=== PATIENT | female | born 1945 | race American Indian/Alaskan Native ===

== ENCOUNTER 2016-12-03 06:28 | Day surgery (SDC) | payer MEDICARE ==
[~2016-12-03 06:28] MED LIST: TETRACAINE 0.5% OS PRN
[2016-12-03] MEDS: MYDRIACYL OS SCH ×3 (07:00→07:10)
[2016-12-03] MEDS: VIGAMOX OS SCH ×3 (07:00→07:10)
[2016-12-03] MEDS: AK-Dilate OS SCH ×3 (07:00→07:10)
--- NOTE | 2016-12-03 07:22 | Anesthesia Consultation ---
Anesthesia Consult and Med Hx Date of service: 12/03/16 - Airway Anesthetic Teeth Evaluation: Good ROM Head & Neck: Adequate Mental/Hyoid Distance: Adequate Mallampati Class: Class II Intubation Access Assessment: Probably Good - Pulmonary Exam CTA: Yes - Cardiac Exam Cardiac Exam: RRR - Pre-Operative Health Status ASA Pre-Surgery Classification: ASA3 Proposed Anesthetic Plan: MAC - Pulmonary Hx Smoking: Yes - Cardiovascular System Hx Hypertension: Yes - Central Nervous System Hx Psychiatric Problems: No - Hematic Hx Anemia: Yes - Other Systems Hx Alcohol Use: Yes (DAILY) Hx Cancer: No
--- NOTE | 2016-12-03 07:22 | Anesthesia Day of Surgery ---
Anesthesia Day of Surgery - Day of Surgery Patient Examined: Yes Patient H&P Reviewed: Yes Patient is NPO: Yes
[2016-12-03] MEDS ORDERED: SUBLIMAZE ONE (07:39)
[2016-12-03] MEDS ORDERED: VERSED ONE (07:46)
--- NOTE | 2016-12-03 08:23 | Post Anesthesia Evaluation ---
- Post Anesthesia Evaluation Patient Participated: Yes Airway Patent: Yes Stable Respiratory Function: Yes Nausea/Vomiting: No Temp > 96.8F: Yes Pain Manageable: Yes Adequeate Hydration: Yes Anesthesia Complications: No Block Receding Appropriately: Not Applicable Patient on Ventilator: No
--- NOTE | 2016-12-03 08:48 | Operative Report ---
Operative Report Operative Report: PATIENT'S NAME: DATE OF : DATE OF SURGERY: 11/02/2016 PREOPERATIVE DIAGNOSIS: Cataract left eye POSTOPERATIVE DIAGNOSIS: Same OPERATIVE PROCEDURE: Phacoemulsification with intraocular lens implantation, left eye SURGEON: Cecelia Cosme M.D. HELP DESK ASSISTANT SURGEON: Abby Lens: [id number] 22.0 D ANESTHESIA: Monitored anesthesia care in combination with topical and intracameral anesthesia because of the established specific risk of reflux, arrhythmias, or anxiety attacks associated with ocular manipulation, as well as the difficulty of the tufter hand to manage such potentially catastrophic events while simultaneously attempting to complete the surgical procedure and was deemed necessary for the patient's safety to have an Sales Representative Business Courses present during the procedure whenever possible. An Sales Representative Business Courses was utilized to regulate the intravenous sedation of the patient so the patient was cooperative yet not asleep in order for the patient to successfully maintain fixation of the eye on the operating light of the microscope. COMPLICATIONS: No surgical complications No blood loss. ALLERGIES: Full grapefruit [place] PROGNOSIS: Excellent INDICATIONS FOR SURGERY: The patient is undergoing surgery in the hopes of eliminating or improving these visual difficulties. PROCEDURE: After arriving at the surgery center, the patient was given topical anesthetic and dilating drops, as noted in the record. The patient was then taken into the operating room and given more anesthetic drops. The eyelids , lashes, and lid margins were scrubbed with Betadine solution, and the patient was draped. The Nurse Sales Representative Business Courses administered IV sedation and monitored the patient during the procedure. The eye was then fixated with a 0.12, and a stab incision was made in the peripheral clear cornea into the anterior chamber. This was made on my left side. Viscoelastic was next used to fill the anterior chamber. The eye was once again fixated with the 0.12 forceps and a keratome was used make an incision in clear cornea peripherally on my right hand side temporally. The capsule forceps were used to open the central anterior capsule and then make a continuous round capsulotomy. Hydrodissection was carried out utilizing a cannula and balanced salt solution to delineate the cortical material from the capsule and the nucleus from the cortical material. The phaco tip was introduced into the eye and used to remove the anterior cortical material in the area of the capsulotomy. Then the phaco tip was buried into the nucleus, and a chopping instrument was introduced into the eye and used to provide countertraction in the nucleus between this instrument and the phaco tip fracturing the nucleus. This procedure was repeated multiple times, providing multiple small segments of the lens, and then the phaco tip was used to remove each of these segments. An I/A tip was then used to remove the remaining cortex. The anterior chamber was refilled with viscoelastic. An one-piece, acrylic intraocular lens was then placed into an inserting cartridge. The tip of the inserting cartridge was introduced into the keratome incision and into the anterior chamber. The implant was gently advanced through the cartridge and into the eye, where it unfolded, and both haptics were placed in the capsular bag, where it centered nicely and appeared to be well fixated. After placement of the intraocular lens, the I~and~A handpiece was placed back into the eye and used to remove the viscoelastic, including viscoelastic that was behind the optic of the intraocular lens. The anterior chamber was then filled with balanced salt solution, and hydration of the wound was used to cause swelling of the wound and more appropriate watertight closure. When the wound was found to be firm, the patient was asked to comment on how bright the light was. If there was no light perception at all or if the light was substantially dimmer than during the rest of the surgery, the amount of fluid in the eye was decompressed to lower the intraocular pressure until the patient could see the bright light again. This was done to avoid any damage or decreased blood flow to the optic nerve. MEDICATIONS APPLIED AT END OF SURGERY: One drop of Pred Forte and Vigamox The patient was given a shield to wear at night and was instructed not to rub or push on the eye. DISCHARGE SUMMARY: The patient was released in stable condition. The patient and those with the patient were given a written sheet of postoperative instructions and counseling on any abnormal laboratory studies. The patient is to see us tomorrow for follow-up in the office and is to call immediately for any difficulties. Cecelia Cosme M.D. Date
--- NOTE | 2016-12-03 08:49 | Short Stay Summary ---
Short Stay Documentation Date of service: 12/03/16 - History H&P: obtained from office - Allergies and Medications Current Medications: Allergies apple Allergy (Verified 11/18/16 14:35) itch, hives grapefruit Allergy (Verified 11/18/16 14:35) itch, hives orange Allergy (Verified 11/18/16 14:35) itch, hives Home Medications Medication Instructions Recorded Confirmed Last Taken Type No Known Home Medications [No 11/18/16 12/02/16 Unknown History Reported Home Medications] Active Medications Moxifloxacin HCl (Vigamox) 1 drops OS Q5MIN [facility] Stop: 12/05/16 06:01 Last Admin: 12/03/16 07:10 Dose: 1 drops Phenylephrine HCl (Ak-Dilate) 1 drops OS Q5MIN [facility] Stop: 12/05/16 06:01 Last Admin: 12/03/16 07:10 Dose: 1 drops Prednisolone Acetate (Pred Forte 1%) 1 drops OU QID [facility] Tetracaine HCl (Tetracaine 0.5%) 1 drops OS Q5M PRN PRN Reason: Analgesia Last Admin: 12/03/16 07:00 Dose: 1 drops Tropicamide (Mydriacyl) 1 drops OS Q5MIN [facility] Stop: 12/05/16 06:01 Last Admin: 12/03/16 07:10 Dose: 1 drops - Brief post op/procedure progress note Date of procedure: 12/03/16 Pre-op diagnosis: left cataract Post-op diagnosis: same Procedure: Phacoemulsification intraocular lens insertion Anesthesia: MAC Surgeon: JOHN BLEDSOE Estimated blood loss: none Pathology: none Condition: stable - Disposition Condition at discharge: Good Disposition: DC-01 TO HOME OR SELFCARE - Discharge Diagnoses (1) Cataract Status: Resolved Qualifiers: Cataract type: age-related Age-related cataract type: nuclear Infantile/ juvenile cataract type: I Traumatic cataract type: T Complicated cataract type: C Secondary cataract type: S Laterality: left Qualified Code(s): H25.12 - Age-related nuclear cataract, left eye Short Stay Discharge Plan Follow up with: EDE SANDOVAL MD [Primary Care Provider] - 7 Days
[2016-12-03] MEDS ORDERED: PRED FORTE 1% OU SCH (10:00)
[2016-12-03 15:14] VITALS: BP 169/89
== END 2016-12-03 09:20 | disposition home or self-care (01) ==
LOC: OR 06:28
DX: H26.9 Unspecified cataract (principal); I10 Essential (primary) hypertension; M19.90 Unspecified osteoarthritis, unspecified site; D64.9 Anemia, unspecified; F17.200 Nicotine dependence, unspecified, uncomplicated; Z91.018 Allergy to other foods; Z72.89 Other problems related to lifestyle
CPT/HCPCS: 66984; J2250; J3010; V2632

== ENCOUNTER 2017-01-02 12:32 | Emergency (ER) | payer MEDICARE | END 2017-01-02 12:40 | disposition left against medical advice (07) | LOC: ED 12:32 | DX: H57.10 Ocular pain, unspecified eye (principal); Z91.018 Allergy to other foods; Z53.21 Procedure and treatment not carried out due to patient leaving prior to being seen by health care provider ==

== ENCOUNTER 2017-01-21 06:46 | Day surgery (SDC) | payer MEDICARE ==
[~2017-01-21 06:46] MED LIST changes: +TETRACAINE 0.5% OD PRN; -TETRACAINE 0.5% OS PRN
--- NOTE | 2017-01-21 08:57 | Anesthesia Day of Surgery ---
Anesthesia Day of Surgery - Day of Surgery Patient Examined: Yes Patient H&P Reviewed: Yes Patient is NPO: Yes
--- NOTE | 2017-01-21 08:57 | Anesthesia Consultation ---
Anesthesia Consult and Med Hx Date of service: 01/21/17 - Airway Anesthetic Teeth Evaluation: Good ROM Head & Neck: Adequate Mental/Hyoid Distance: Adequate Mallampati Class: Class II Intubation Access Assessment: Probably Good - Pulmonary Exam CTA: Yes - Cardiac Exam Cardiac Exam: RRR - Pre-Operative Health Status ASA Pre-Surgery Classification: ASA2 Proposed Anesthetic Plan: MAC - Pulmonary Hx Smoking: Yes - Cardiovascular System Hx Hypertension: Yes - Central Nervous System Hx Psychiatric Problems: No - Hematic Hx Anemia: Yes - Other Systems Hx Alcohol Use: Yes (DAILY/VODKA) Hx Substance Use: No Hx Cancer: No
[2017-01-21] MEDS: VIGAMOX OD SCH ×3 (09:34→09:48)
[2017-01-21] MEDS: MYDRIACYL OD SCH ×3 (09:34→09:47)
[2017-01-21] MEDS: AK-Dilate OD SCH ×3 (09:34→09:47)
[2017-01-21] MEDS ORDERED: SUBLIMAZE ONE (09:54)
[2017-01-21] MEDS ORDERED: VERSED ONE (09:54)
[2017-01-21] MEDS ORDERED: PRED FORTE 1% OU SCH (10:30)
[2017-01-21] MEDS ORDERED: XYLOCAINE 1% MPF 5 mL IJ ONE (10:31)
[2017-01-21] MEDS ORDERED: PRED FORTE 1% OD ONE (11:00)
--- NOTE | 2017-01-21 11:18 | Operative Report ---
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 STACK YIELD ENGINEER SURGEON: Abby Lens: [id number] 22.5 D ANESTHESIA: Monitored anesthesia care in combination with topical and intracameral anesthesia because of the established specific risk of reflux, arrhythmias, or anxiety attacks associated with ocular manipulation, as well as the difficulty of the aquatic physiotherapist to manage such potentially catastrophic events while simultaneously attempting to complete the surgical procedure and was deemed necessary for the patient's safety to have an Security Site Supervisor present during the procedure whenever possible. An Security Site Supervisor was utilized to regulate the intravenous sedation of the patient so the patient was cooperative yet not asleep in order for the patient to successfully maintain fixation of the eye on the operating light of the microscope. COMPLICATIONS: No blood loss. ALLERGIES: Fruit skin PROGNOSIS: Excellent INDICATIONS FOR SURGERY: The patient is undergoing surgery in the hopes of eliminating or improving these visual difficulties. PROCEDURE: After arriving at the surgery center, the patient was given topical anesthetic and dilating drops, as noted in the record. The patient was then taken into the operating room and given more anesthetic drops. The eyelids , lashes, and lid margins were scrubbed with Betadine solution, and the patient was draped. The Nurse Security Site Supervisor administered IV sedation and monitored the patient during the procedure. The eye was then fixated with a 0.12, and a stab incision was made in the peripheral clear cornea into the anterior chamber. This was made on my left side. Viscoelastic was next used to fill the anterior chamber. The eye was once again fixated with the 0.12 forceps and a keratome was used make an incision in clear cornea peripherally on my right hand side temporally. The capsule forceps were used to open the central anterior capsule and then make a continuous round capsulotomy. Hydrodissection was carried out utilizing a cannula and balanced salt solution to delineate the cortical material from the capsule and the nucleus from the cortical material. The phaco tip was introduced into the eye and used to remove the anterior cortical material in the area of the capsulotomy. Then the phaco tip was buried into the nucleus, and a chopping instrument was introduced into the eye and used to provide countertraction in the nucleus between this instrument and the phaco tip fracturing the nucleus. This procedure was repeated multiple times, providing multiple small segments of the lens, and then the phaco tip was used to remove each of these segments. Due to a small pupil size, it was deemed necessary to dilate the pupil mechanically so that the surgery could be more safely and effectively carried out. A Beehler corneal dilator was brought into the operative field and it was inserted into the keratome incision. The hook on the distal end of the dilator was used to hook the pupil in the meridian of the keratome incision and to pull the iris/pupil, which was hooked, back to the site of the keratome incisions entry into the anterior chamber. The Malugyan ring was inserted to allow better visualization. The pupil kept on moving outside of wound incision. An I/A tip was then used to remove the remaining cortex. The anterior chamber was refilled with viscoelastic. An one-piece, acrylic intraocular lens was then placed into an inserting cartridge. The tip of the inserting cartridge was introduced into the keratome incision and into the anterior chamber. The implant was gently advanced through the cartridge and into the eye, where it unfolded, and both haptics were placed in the capsular bag, where it centered nicely and appeared to be well fixated. After placement of the intraocular lens, the Malugyan ring was removed then the I~and~A handpiece was placed back into the eye and used to remove the viscoelastic, including viscoelastic that was behind the optic of the intraocular lens. The anterior chamber was then filled with balanced salt solution, and hydration of the wound was used to cause swelling of the wound and more appropriate watertight closure. When the wound was found to be firm, the patient was asked to comment on how bright the light was. If there was no light perception at all or if the light was substantially dimmer than during the rest of the surgery, the amount of fluid in the eye was decompressed to lower the intraocular pressure until the patient could see the bright light again. This was done to avoid any damage or decreased blood flow to the optic nerve. MEDICATIONS APPLIED AT END OF SURGERY: One drop of Pred Forte and Vigamox The patient was given a shield to wear at night and was instructed not to rub or push on the eye. DISCHARGE SUMMARY: The patient was released in stable condition. The patient and those with the patient were given a written sheet of postoperative instructions and counseling on any abnormal laboratory studies. The patient is to see us tomorrow for follow-up in the office and is to call immediately for any difficulties. Cecelia Cosme M.D. Date
--- NOTE | 2017-01-21 11:20 | Short Stay Summary ---
Short Stay Documentation Date of service: 01/21/17 - History H&P: obtained from office - Allergies and Medications Current Medications: Allergies apple Allergy (Verified 11/18/16 14:35) itch, hives grapefruit Allergy (Verified 11/18/16 14:35) itch, hives orange Allergy (Verified 11/18/16 14:35) itch, hives Home Medications Medication Instructions Recorded Confirmed Last Taken Type prednisoLONE ACETATE 1% [Pred 1 drops OD QID 01/20/17 01/21/17 01/20/17 History Forte 1%] Active Medications Moxifloxacin HCl (Vigamox) 1 drops OD Q5MIN [facility] Stop: 01/23/17 06:01 Last Admin: 01/21/17 09:48 Dose: 1 drops Phenylephrine HCl (Ak-Dilate) 1 drops OD Q5MIN [facility] Stop: 01/23/17 06:01 Last Admin: 01/21/17 09:47 Dose: 1 drops Tetracaine HCl (Tetracaine 0.5%) 1 drops OD Q5M PRN PRN Reason: Analgesia Last Admin: 01/21/17 09:32 Dose: 1 drops Tropicamide (Mydriacyl) 1 drops OD Q5MIN [facility] Stop: 01/23/17 06:01 Last Admin: 01/21/17 09:47 Dose: 1 drops - Brief post op/procedure progress note Date of procedure: 01/21/17 Pre-op diagnosis: right cataract and floppy iris syndrome Post-op diagnosis: same Procedure: Phacoemulsification with intraocular lens insertion right eye Anesthesia: MAC Surgeon: JOHN BLEDSOE Estimated blood loss: none Pathology: none Condition: stable - Disposition Condition at discharge: Good Disposition: DC-01 TO HOME OR SELFCARE - Discharge Diagnoses (1) Cataract Status: Resolved Qualifiers: Cataract type: age-related Age-related cataract type: nuclear Infantile/ juvenile cataract type: I Traumatic cataract type: T Complicated cataract type: C Secondary cataract type: S Laterality: right Qualified Code(s): H25.11 - Age-related nuclear cataract, right eye Short Stay Discharge Plan Follow up with: EDE SANDOVAL MD [Primary Care Provider] - 7 Days
[2017-01-21 11:35] VITALS: BP 162/96
== END 2017-01-21 11:28 | disposition home or self-care (01) ==
LOC: OR 06:46
DX: H26.9 Unspecified cataract (principal); H21.81 Floppy iris syndrome; M19.90 Unspecified osteoarthritis, unspecified site; D64.9 Anemia, unspecified; I10 Essential (primary) hypertension; F17.200 Nicotine dependence, unspecified, uncomplicated; Z91.018 Allergy to other foods; Z72.89 Other problems related to lifestyle
CPT/HCPCS: 66982; J2250; J3010; V2632